=== PATIENT | male | born 1975 | race Two or more races ===

== ENCOUNTER 2022-05-26 18:20 | Emergency (ER) | payer SELFPAY ==
[2022-05-26 18:48] LABS: BASOPHILS # (AUTO) 0.1 10^3/uL (0.0-0.1); BASOPHILS % (AUTO) 0.5 %; EOSINOPHILS # (AUTO) 0.2 10^3/uL (0.0-0.7); EOSINOPHILS % (AUTO) 2.1 %; HCT - HEMATOCRIT 44.4 % (42.0-52.0); HGB - HEMOGLOBIN 15.5 g/dL (14.0-18.0); LYMPHOCYTES # (AUTO) 3.1 10^3/uL (1.5-3.5); LYMPHOCYTES % (AUTO) 31.9 %; MEAN CORPUSCULAR HEMOGLOBIN 30.7 pg (27.0-31.0); MEAN CORPUSCULAR HGB CONC 34.9 g/dL (32.0-36.0); MEAN CORPUSCULAR VOLUME 87.9 fL (80.0-94.0); MONOCYTES # (AUTO) 0.8 10^3/uL (0.0-1.0); MONOCYTES % (AUTO) 8.4 %; NEUTROPHILS # (AUTO) 5.5 10^3/uL (1.5-6.6); NEUTROPHILS % (AUTO) 56.9 %; PLT - PLATELET COUNT 325 10^3/uL (130-450); RED BLOOD COUNT 5.05 10^6/uL (4.70-6.10); RED CELL DISTRIBUTION WIDTH 13.1 % (12.0-15.0); WHITE BLOOD COUNT 9.7 x10^3/uL (4.8-10.8)
[2022-05-26 19:04] LABS: ALBUMIN 4.8 g/dL (3.2-5.5); ALBUMIN/GLOBULIN RATIO 1.8 (1.0-2.2); BILIRUBIN,TOTAL 0.9 mg/dL (0.2-1.0); CALCIUM 9.2 mg/dL (8.5-10.3); POTASSIUM 3.4 mmol/L (3.5-5.0); TOTAL PROTEIN 7.5 g/dL (6.7-8.2)
[2022-05-26 19:05] LABS: BILIRUBIN,URINE NEGATIVE (NEGATIVE); CLARITY,URINE HAZY (CLEAR); GLUCOSE, URINE (UA) NEGATIVE (NEGATIVE); KETONES,URINE (UA) 15 mg/dL (NEGATIVE); LEUKOCYTE ESTERASE, URINE NEGATIVE (NEGATIVE); NITRITE,URINE NEGATIVE (NEGATIVE); OCCULT BLOOD,URINE MODERATE (NEGATIVE); PROTEIN,URINE NEGATIVE (NEGATIVE); UROBILINOGEN,URINE 0.2 (NORMAL) E.U./dL (NORMAL)
[2022-05-26] MEDS ORDERED: KETOROLAC 30 MG/ML VIAL IVP STA (19:10)
[2022-05-26] MEDS ORDERED: LIDOCAINE-MPF 2% 6 ML in SODIUM CHLORIDE 0.9% 50 ML IV STA (19:10)
[2022-05-26 19:14] LABS: BACTERIA,URINE None Seen /HPF (None Seen); SQUAMOUS EPITHELIAL CELL,UR NONE SEEN (<= Few); WBC,URINE 0-3 /HPF (0-3)
[2022-05-26 19:15] LABS: AMORPHOUS SEDIMENT,UR Few /LPF
[2022-05-26] MEDS ORDERED: LIDOCAINE-MPF 2% 5 ML VIAL ONE (19:32)
--- NOTE | 2022-05-26 20:17 | CT Report ---
PROCEDURE: Abdomen/Pelvis WO INDICATIONS: R flank pain TECHNIQUE: Noncontrast 5 mm thick sections acquired from the diaphragms to the symphysis. 5 mm coronal and sagi ttal reformats were then performed. For radiation dose reduction, the following was used: automated exposure control, adjustment of mA and/or kV according to patient size. COMPARISON: None. FINDINGS: Image quality: Excellent. ABDOMEN: Lung bases: Lung bases are clear. Heart size is normal. Solid organs: Liver and spleen are normal in size. Gallbladder appears normal. Pancreas is normal in contours. No adrenal nodules. Multiple nonobstructing bilateral intrarenal calculi. There is mild right hydronephrosis and mild par apelvic inflammation. Minimal right hydroureter. There is a 4 mm calcification within the urinary radha dder just distal to the right ureterovesicular junction. No left-sided ureteral calcifications. Peritoneum and bowel: Unenhanced bowel loops demonstrate normal wall thickness and caliber. Occasio nal sigmoid diverticulosis. No free fluid or air. Nodes and vessels: No retroperitoneal or mesenteric adenopathy by size criteria. Aorta and inferior vena cava are normal in caliber. Miscellaneous: No ventral hernias. PELVIS: Genitourinary: Bladder wall thickness is normal. Normal prostate gland. Miscellaneous: Tiny fat-containing bilateral inguinal hernias, left greater than right. Bones: No suspicious bony lesions. No vertebral body compression fractures. IMPRESSION: 1. Recent passage of 4 mm stone from the right ureter, now seen in the urinary bladder. Mild residual hydroureteronephrosis. 2. Multiple retained bilateral intrarenal calculi. Reviewed by: Key Zelaya MD on 05/26/2022 8:15 PM PDT Approved by: Key Zelaya MD on 05/26/2022 8:15 PM PDT Station ID: [id number]
[2022-05-26] MEDS ORDERED: MORPHINE 2 MG/ML CARPUJECT IVP STA (20:19)
--- NOTE | 2022-05-26 20:21 | ED Physician Documentation ---
History of Present Illness - Stated complaint Stated Complaint: ABD PX - Chief complaint Chief Complaint: Abd Pain - History obtained from History obtained from: Patient - History of Present Illness Timing: Today Pain level max: 10 Pain level now: 10 - Additonal information Additional information: Patient is a 46-year-old male who presents to the emergency department the right flank pain that is now moved around the anterior aspect of the right lower abdomen. Described as shooting and sharp. He states similar to his prior kidney stones. Nothing makes it better or worse. No urinary discomfort. No fever. No chills. no hematuria. Review of Systems Constitutional: denies: Fever, Chills Throat: denies: Sore throat Cardiac: denies: Chest pain / pressure, Palpitations Respiratory: denies: Dyspnea, Cough GI: denies: Diarrhea, Hematemesis, Bloody / black stool : denies: Dysuria, Frequency, Hesitancy, Hematuria Skin: denies: Rash Musculoskeletal: denies: Neck pain Neurologic: denies: Headache PD PAST MEDICAL HISTORY - Past Medical History Past Medical History: Yes : Kidney stones - Present Medications Home Medications: Ambulatory Orders Medication Instructions Recorded Confirmed HYDROcod/ACETAM 5/325 [[facility] 5/325] 1 - 2 ea PO Q6H PRN #14 tablet 05/26/22 Ondansetron Odt [Zofran] 4 mg TL Q6H PRN #10 tablet 05/26/22 - Allergies Allergies/Adverse Reactions: Allergies Allergy/AdvReac Type Severity Reaction Status Date / Time No Known Drug Allergies Allergy Verified 05/26/22 18:28 - Social History Does the pt smoke?: No Smoking Status: Never smoker PD ED PE NORMAL - Vitals Vital signs reviewed: Yes - General General: Alert and oriented X 3, Other (appears in pain) - HEENT HEENT: PERRL, Moist mucous membranes - Neck Neck: Supple, no meningeal sign - Cardiac Cardiac: RRR, Strong equal pulses - Respiratory Respiratory: No respiratory distress, Clear bilaterally - Abdomen Abdomen: Soft, Non tender, Non distended - Back Back: No CVA TTP, No spinal TTP - Derm Derm: Warm and dry - Neuro Neuro: Alert and oriented X 3 - Psych Psych: Normal mood, Normal affect Results - Vitals Vitals: Vital Signs - 24 hr 05/26/22 05/26/22 18:25 20:39 Temperature 36.3 C L 36.4 C L Heart Rate 69 62 Respiratory 16 16 Rate Blood Pressure 157/88 H 143/92 H O2 Saturation 100 99 Oxygen O2 Source Room air - Labs Labs: Laboratory Tests 05/26/22 05/26/22 05/26/22 18:40 18:40 18:56 WBC 9.7 RBC 5.05 Hgb 15.5 Hct 44.4 MCV 87.9 MCH 30.7 MCHC 34.9 RDW 13.1 Plt Count 325 MPV 9.0 Neut # (Auto) 5.5 Lymph # (Auto) 3.1 [place] # (Auto) 0.8 Eos # (Auto) 0.2 Baso # (Auto) 0.1 Absolute Nucleated RBC 0.00 Nucleated RBC % 0.0 Sodium 140 Potassium 3.4 L Chloride 107 Carbon Dioxide 24 Anion Gap 9.0 BUN 12 Creatinine 1.0 Estimated GFR (MDRD) 81 L Glucose 122 H Calcium 9.2 Total Bilirubin 0.9 AST 19 ALT 24 Alkaline Phosphatase 62 Total Protein 7.5 Albumin 4.8 Globulin 2.7 Albumin/Globulin Ratio 1.8 Lipase 26 Urine Color YELLOW Urine Clarity HAZY Urine pH 7.0 Ur Specific [place] 1.020 Urine Protein NEGATIVE Urine Glucose (UA) NEGATIVE Urine Ketones 15 H Urine Occult Blood MODERATE H Urine Nitrite NEGATIVE Urine Bilirubin NEGATIVE Urine Urobilinogen 0.2 (NORMAL) Ur Leukocyte Esterase NEGATIVE Urine RBC 11-25 H Urine WBC 0-3 Ur Squamous Epith Cells NONE SEEN Amorphous Sediment Few Urine Bacteria None Seen Ur Microscopic Review INDICATED Urine Culture Comments NOT INDICATED - Rads (name of study) CT abd/pelvis Radiology: Final report received, EMP read contemporaneously, See rad report PD MEDICAL DECISION MAKING - ED course Complexity details: reviewed results, re-evaluated patient, considered differential, d/w patient ED course: 46-year-old male with a past 4 mm stone from the right ureter, now on the bladder. Mild residual hydroureteronephrosis on CT scan. Pain well controlled. He has multiple retained bilateral intrarenal calculi. Encouraged him to decrease coffee, tea, energy drinks, alcohol intake. Increase water intake. We will have him follow-up with a primary care provider for further care. Patient counseled regarding signs and symptoms for which I believe and urgent re- evaluation would be necessary. Patient with good understanding of and agreement to plan and is comfortable going home at this time This document was made in part using voice recognition software. While efforts are made to proofread this document, sound alike and grammatical errors may occur. IMPRESSION: 1. Recent passage of 4 mm stone from the right ureter, now seen in the urinary bladder. Mild residual hydroureteronephrosis. 2. Multiple retained bilateral intrarenal calculi. Departure - Departure Disposition: 01 Home, Self Care Clinical Impression: Ureteral stone Condition: Good Instructions: ED Stone Renal Passed Follow-Up: [facility] [Provider Group] [facility] [Provider Group] [facility] [place] [Provider Group] Prescriptions: HYDROcod/ACETAM 5/325 [[facility] 5/325] 1 - 2 ea PO Q6H PRN #14 tablet PRN Reason: Pain Ondansetron Odt [Zofran] 4 mg TL Q6H PRN #10 tablet PRN Reason: Nausea / Vomiting Comments: Please follow-up with your doctor for further care. [facility] [place]. You passed a kidney stone tonight. Drink plenty of water. You have several more stones in your kidneys. I am prescribing a short course of narcotic pain medication for you. These are potentially dangerous and addictive medications that should be used carefully. These medications may constipate you. Take an zbwz-vdx-ruivifw stool softener (docusate) twice daily with plenty of water while taking these medications. If you go 24 hours without a bowel movement, take kici-[id number] miralax, per package instructions. Do not drink or drive while taking these medications. If you received narcotic or sedating medications while in the emergency department, do not drive for 24 hours. Store this medication in a safe, secure place and out of reach of children. It is a violation of federal law to give or sell this medication to another person or to use in a manner other than prescribed. The ED will not refill narcotic prescriptions, including prescriptions lost or stolen. To dispose of unwanted medications: 1. [facility] [address] in [place] has a medication drop box. They accept prescription medications (in pill form) Tuesday through Tuesday 9:00 a.m. to 5:00 p.m. 2. The [facility] [employer] accepts prescription medications (in pill form only) for disposal year round. Call for more information. 3. Contact the [facility] for the next [facility] sponsored prescription drug collection event. , [phone], or [phone]; IMPRESSION: 1. Recent passage of 4 mm stone from the right ureter, now seen in the urinary bladder. Mild residual hydroureteronephrosis. 2. Multiple retained bilateral intrarenal calculi. Discharge Date/Time: 05/26/22 20:39
[2022-05-26 20:40] VITALS: BP 143/92
== END 2022-05-26 20:39 | disposition home or self-care (01) ==
LOC: ED 18:20
DX: N20.1 Calculus of ureter (principal)
CPT/HCPCS: 36415; 74176; 80053; 81001; 83690; 85025; 96365; 96375; 99284; J7040; 81003; 87086

== ENCOUNTER 2022-10-30 18:13 | Emergency (ER) | payer SELFPAY ==
[2022-10-30] MEDS ORDERED: iohexoL-300 100 ML VIAL ONE (18:44)
--- NOTE | 2022-10-30 18:44 | ED Physician Documentation ---
PD HPI CHEST PAIN - Stated complaint Stated Complaint: CHEST PX - Chief complaint Chief Complaint: Cardiac - History obtained from History obtained from: Patient - Additional information Additional information: Previously healthy 47-year-old has been dealing with intermittent chest pains for the last 4 days. It is a poking and pinching type pressure just to the left of the sternum. Not diffuse. It lasts about a minute when he has it. There is no particular pattern to it. He does not notice that it is any worse when physically exerting himself versus at rest or at home. He is not short of b reath with it. He did have a backache with it the other day which is now gone. No sweatiness or nausea. He had never had this before. PD PAST MEDICAL HISTORY - Past Medical History : Kidney stones - Present Medications Home Medications: Ambulatory Orders Medication Instructions Recorded Confirmed HYDROcod/ACETAM 5/325 [[place] 5/325] 1 - 2 ea PO Q6H PRN #14 tablet 05/26/22 Ondansetron Odt [Zofran] 4 mg TL Q6H PRN #10 tablet 05/26/22 Omeprazole 40 mg PO DAILY #30 cap 10/30/22 - Allergies Allergies/Adverse Reactions: Allergies Allergy/AdvReac Type Severity Reaction Status Date / Time No Known Drug Allergies Allergy Verified 10/30/22 18:23 - Social History Does the pt smoke?: No Smoking Status: Never smoker PD ED PE NORMAL - Vitals Vital signs reviewed: Yes (Modest resting tachycardia and hypertension) - General General: Alert and oriented X 3, No acute distress - HEENT HEENT: PERRL, EOMI - Cardiac Cardiac: No murmur, Other (Tachycardic but regular without murmur) - Respiratory Respiratory: No respiratory distress, Clear bilaterally, Other (No tenderness of the chest wall) - Abdomen Abdomen: Normal bowel sounds, Soft, Non tender - Extremities Extremities: No edema, No calf tenderness / cord - Neuro Neuro: Alert and oriented X 3, Normal speech - Psych Psych: Normal mood, Normal affect Results - Vitals Vitals: Vital Signs - 24 hr 10/30/22 10/30/22 10/30/22 18:14 19:03 21:37 Temperature 36.7 C Heart Rate 116 H 99 76 Respiratory 16 13 19 Rate Blood Pressure 169/101 H 136/93 H 137/92 H O2 Saturation 97 95 98 Oxygen O2 Source Room air - EKG (time done) 1818 Rate: Rate (enter#) (105) Rhythm: Sinus tachycardia [place]: LAD Intervals: Normal MI QRS: Normal Ischemia: Normal ST segments - Labs Labs: Laboratory Tests 10/30/22 10/30/22 10/30/22 18:50 18:50 18:50 WBC 10.5 RBC 5.06 Hgb 15.2 Hct 45.0 MCV 88.9 MCH 30.0 MCHC 33.8 RDW 13.0 Plt Count 321 MPV 9.3 Neut # (Auto) 7.3 H Lymph # (Auto) 2.2 [place] # (Auto) 0.7 Eos # (Auto) 0.2 Baso # (Auto) 0.1 Absolute Nucleated RBC 0.00 Nucleated RBC % 0.0 Sodium 139 Potassium 3.5 Chloride 106 Carbon Dioxide 22 Anion Gap 11.0 BUN 20 Creatinine 1.0 Estimated GFR (MDRD) 81 L Glucose 127 H Calcium 9.3 Total Bilirubin 0.6 AST 17 ALT 20 Alkaline Phosphatase 75 Troponin I High Sens 2.7 Total Protein 7.8 Albumin 4.7 Globulin 3.1 Albumin/Globulin Ratio 1.5 Lipase 30 - Rads (name of study) CT angiography of the chest was without PE. He does have a hiatal hernia with distal esophageal wall thickening. Radiology: Final report received, EMP read indepedently PD Medical Decision Making - ED course ED course: 47-year-old gentleman with very atypical intermittent chest pain without a pattern.. It is quite atypical and not exertional. He does have a resting tachycardia though. His EKG is nonischemic. ACS is of course considered but this would be very atypical. PE is considered given the resting tachycardia but would also be atypical given his lack of shortness of breath or leg symptoms. A CTPA will be done. CTPA demonstrated a hiatal hernia and findings likely consistent with es ophagitis and he is started on omeprazole pending PCP follow-up. Departure - Departure Disposition: 01 Home, Self Care Clinical Impression: Chest pain, Hiatal hernia Condition: Good Record reviewed to determine appropriate education?: Yes Instructions: ED Chest Pain NonCardiac Prescriptions: Omeprazole 40 mg PO DAILY #30 cap Comments: There is no evidence of anything going on with your heart. On the CAT scan we were looking for blood clots, you did not have 1, but you do have a hiatal hernia with findings of an inflamed esophagus. This may well be the cause of your pain. For that I am starting an acid medication, it does not work immediately but takes a few days to work. Call your doctor to arrange a follow-up appointment, make the next available appointment. In the interim, return anytime if worse or if new symptoms develop.
--- NOTE | 2022-10-30 18:54 | XRAY Report ---
PROCEDURE: Chest 1 View X-Ray INDICATIONS: Chest pain TECHNIQUE: One view of the chest was acquired. COMPARISON: None. FINDINGS: Surgical changes and devices: None. Lungs and pleura: No pleural effusions or pneumothorax. Lungs are clear. Mediastinum: Mediastinal contours appear normal. Heart size is normal. Bones and chest wall: No suspicious bony lesions. Overlying soft tissues appear unremarkable. IMPRESSION: No acute cardiopulmonary findings Reviewed by: Mario Monreal MD on 10/30/2022 5:53 PM [place] Approved by: Mario Monreal MD on 10/30/2022 5:53 PM [place] Station ID: [id number]
[2022-10-30 19:02] LABS: BASOPHILS # (AUTO) 0.1 10^3/uL (0.0-0.1); BASOPHILS % (AUTO) 0.6 %; EOSINOPHILS # (AUTO) 0.2 10^3/uL (0.0-0.7); EOSINOPHILS % (AUTO) 1.9 %; HGB - HEMOGLOBIN 15.2 g/dL (14.0-18.0); LYMPHOCYTES # (AUTO) 2.2 10^3/uL (1.5-3.5); LYMPHOCYTES % (AUTO) 20.9 %; MEAN CORPUSCULAR HGB CONC 33.8 g/dL (32.0-36.0); MEAN CORPUSCULAR VOLUME 88.9 fL (80.0-94.0); MEAN PLATELET VOLUME 9.3 fL (7.4-11.4); MONOCYTES # (AUTO) 0.7 10^3/uL (0.0-1.0); MONOCYTES % (AUTO) 6.7 %; NEUTROPHILS # (AUTO) 7.3 10^3/uL (1.5-6.6); NEUTROPHILS % (AUTO) 69.5 %; PLT - PLATELET COUNT 321 10^3/uL (130-450); RED BLOOD COUNT 5.06 10^6/uL (4.70-6.10); WHITE BLOOD COUNT 10.5 x10^3/uL (4.8-10.8)
[2022-10-30 19:32] LABS: ALBUMIN 4.7 g/dL (3.2-5.5); ALBUMIN/GLOBULIN RATIO 1.5 (1.0-2.2); BILIRUBIN,TOTAL 0.6 mg/dL (0.2-1.0); CALCIUM 9.3 mg/dL (8.5-10.3); POTASSIUM 3.5 mmol/L (3.5-5.0); TOTAL PROTEIN 7.8 g/dL (6.7-8.2)
[2022-10-30] MEDS ORDERED: iohexoL-300 100 ML VIAL IVP ONE (22:40)
--- NOTE | 2022-10-30 22:45 | CT Report ---
PROCEDURE: ANGIO CHEST W/WO INDICATIONS: Chest pain, pe protocol CONTRAST: 100 ML OMNI 300 TECHNIQUE: After the administration of intravenous contrast, 2 mm axial images were acquired from the pulmonary apices to the posterior costophrenic angles during the arterial phase. In addition, 1 mm lung kernel and 5 mm soft tissue kernel reconstructions were performed. 3-dimensional coronal oblique maximum int ensity projection (MIP) reformats, 8 mm axial MIP, and 5 mm coronal and sagittal MPR reformats were t hen performed through the thorax. For radiation dose reduction, the following was used: automated exp osure control, adjustment of mA and/or kV according to patient size. COMPARISON: Chest radiograph, 10/30/2022 FINDINGS: Image quality: Excellent. Pulmonary arteries: Pulmonary arteries are normal in size, and demonstrate no intraluminal filling d efects to suggest central pulmonary embolism. Lungs and pleura: A densely calcified granuloma can be seen within the left lower lobe, as on series 6 image 144. No suspicious soft tissue nodules are seen. No focal infiltrates are seen. No pleural effusions or pneumothorax. Central and peripheral airways are patent. Mediastinum: Heart size is normal, without pericardial effusion. No mediastinal or hilar adenopathy . Thoracic aorta is normal in caliber and enhancement. Esophagus is normal in caliber.There is a sm all hiatal hernia. There is moderate wall thickening seen of the distal esophagus Bones and chest wall: No suspicious bony lesions. Ribs and thoracic spine appear intact throughout. No axillary or supraclavicular adenopathy. The thyroid is normal in size and there are no incident al findings. Abdomen: Visualized upper abdominal solid organs appear normal in the early arterial phase of enhanc ement. IMPRESSION: Negative for pulmonary embolism. Hiatal hernia with moderate wall thickening of the distal esophagus. Gastroesophageal reflux disease is presumed. Additional findings: Prior granulomatous exposure. Reviewed by: Mekhi Morataya MD on 10/30/2022 9:44 PM [facility] Approved by: Mekhi Morataya MD on 10/30/2022 9:44 PM [facility] Station ID: [id number]
[2022-10-30 23:15] VITALS: BP 148/96
== END 2022-10-30 23:15 | disposition home or self-care (01) ==
LOC: ED 18:13
DX: R07.89 Other chest pain (principal); K44.9 Diaphragmatic hernia without obstruction or gangrene
CPT/HCPCS: 36415; 71045; 71275; 80053; 83690; 84484; 85025; 93005; 99284; Q9967